=== PATIENT | male | born 1995 | race Caucasian/White ===

== ENCOUNTER 2024-11-20 13:28 | Emergency (ER) | payer OTHER ==
[~2024-11-20] VITALS: Ht 172.7 cm; Wt 59.0 kg
[2024-11-20 14:03] VITALS: O2SAT 100
[2024-11-20] MEDS: CHLORDIAZEPOXIDE 25MG CAPSULE PO ONE (15:00)
[2024-11-20 15:23] VITALS: BP 130/92; PULSE 89; RESP 18; TEMP 37; O2SAT 100
== END 2024-11-20 15:25 | disposition home or self-care (01) ==
LOC: ER 13:28
DX: F41.9 Anxiety disorder, unspecified (principal); F10.10 Alcohol abuse, uncomplicated; F12.90 Cannabis use, unspecified, uncomplicated; Y90.9 Presence of alcohol in blood, level not specified
CPT/HCPCS: 71045; 93005; 99283